=== PATIENT | male | born 1970 | race Caucasian/White ===

== ENCOUNTER 2021-08-30 13:46 | Emergency (ER) | payer SELFPAY ==
[~2021-08-30] VITALS: Ht 177.8 cm; Wt 78.0 kg
[2021-08-30 16:59] VITALS: BP 167/89
[2021-08-30] MEDS ORDERED: CRUT1EAC MC ×3 (17:00→17:02)
== END 2021-08-30 17:00 | disposition home or self-care (01) ==
LOC: ER 13:46
DX: S82.042A Displaced comminuted fracture of left patella, initial encounter for closed fracture (principal); I10 Essential (primary) hypertension; X58.XXXA Exposure to other specified factors, initial encounter; Y93.9 Activity, unspecified; Y92.9 Unspecified place or not applicable; Z88.6 Allergy status to analgesic agent
CPT/HCPCS: 73562; 99283; L1830; Z7610